=== PATIENT | female | born 1955 | race Caucasian/White ===

== ENCOUNTER 2017-06-18 04:51 | Emergency (ER) | payer BC ==
[~2017-06-18] VITALS: Ht 162.6 cm; Wt 61.2 kg
[~2017-06-18 04:51] MED LIST: APAP500 PO; BENTYL 20 MG TA20 M1 PO; BYSTOLIC20 MG PO; ELOCON15 GM; PRILOSEC 20 MG20 MG PO
[2017-06-18] MEDS ORDERED: ZOFRAN ODT4 MG PO (06:01)
== END 2017-06-18 06:25 | disposition home or self-care (01) ==
LOC: ER 04:51
DX: J11.1 Influenza due to unidentified influenza virus with other respiratory manifestations (principal); K21.9 Gastro-esophageal reflux disease without esophagitis; I10 Essential (primary) hypertension; Z90.710 Acquired absence of both cervix and uterus; Z88.0 Allergy status to penicillin; Z88.8 Allergy status to other drugs, medicaments and biological substances; Z88.6 Allergy status to analgesic agent; Z87.891 Personal history of nicotine dependence